=== PATIENT | female | born 1985 | race Caucasian/White ===

== ENCOUNTER 2018-06-16 02:51 | Emergency (ER) | payer BC ==
[2018-06-16] MEDS: MECLIZINE 12.5 MG TAB PO (03:41)
== END 2018-06-16 04:45 | disposition home or self-care (01) ==
LOC: FTE 02:51
DX: R42 Dizziness and giddiness (principal); R40.2412 Glasgow coma scale score 13-15, at arrival to emergency department
CPT/HCPCS: 99282